=== PATIENT | female | born 1975 | race Caucasian/White ===

== ENCOUNTER 2016-09-17 16:31 | Emergency (ER) | payer MEDICARE, MEDICAID ==
[2016-09-17 17:59] LABS: Hematocrit 33 % (35-47); Mean Corpuscular HGB Conc 33 g/dl (31-36); Mean Corpuscular Hemoglobin 30 pg (27-31); Mean Corpuscular Volume 89 fL (80-97); Mean Platelet Volume 9 um3 (7.4-10.4); Red Blood Count 3.72 10^6/ul (4.0-5.4); Red Cell Distribution Width 15 % (10.5-15); White Blood Count 5.2 10^3/ul (3.5-10.8)
[2016-09-17 18:16] LABS: ALT 21 U/L (7-52); AST 21 U/L (13-39); Alkaline Phosphatase 46 U/L (34-104); Anion Gap 7 mmol/L (2-11); BUN/Creatinine Ratio 15.3 (8-20); Blood Urea Nitrogen 9 mg/dL (6-24); C Reactive Protein < 1.00 mg/L (< 5.00); CO2 Carbon Dioxide 27 mmol/L (22-32); Calcium 9.6 mg/dL (8.6-10.3); Chloride 101 mmol/L (101-111); EGFR African American 145.9 (>60); EGFR Non-African American 113.5 (>60); Globulin 3.3 g/dL (2-4); Glucose 79 mg/dL (70-100); Potassium 3.4 mmol/L (3.5-5.0); Sodium 135 mmol/L (133-145); Total Protein 8.3 g/dL (6.4-8.9)
--- NOTE | 2016-09-17 18:39 | RAD ---
INDICATION: Angiogram in July. Subsequent infection. Has been on antibiotics. Redness and discharge from the puncture site today. COMPARISON: None. TECHNIQUE: Brito scale, color Doppler, and spectral analysis of the deep veins of the LEFT lower extremity. Vessel compression, phasicity, and augmentation assessed. REPORT: The LEFT common femoral, great saphenous, profunda femoral, femoral, popliteal, peroneal, and posterior tibial veins are patent. Ultrasound at the level of the LEFT groin puncture site demonstrates mild infiltrative edema. No loculated abscess collection evident. No pseudoaneurysm evident. 0.3 cm short axis normal morphology LEFT inguinal lymph node noted. Patency of the contralateral common femoral vein documented. IMPRESSION: 1. No evidence for LEFT lower extremity deep venous thrombosis. 2. Ultrasound at the level of the LEFT groin puncture site demonstrates mild infiltrative edema. No loculated abscess collection evident. No pseudoaneurysm evident.
--- NOTE | 2016-09-17 18:58 | ED ---
Skin Complaint - HPI Summary HPI Summary: 41 female presents with complaints of redness and drainage from a past surgical wound on her left groin from an angiogram back in July. Patient has had this same problem but worse a few weeks ago that lasted for a few weeks and after two rounds of antibiotics it cleared. She noticed today 09/17/16 the redness and minimal drainage for the site again. Denies bleeding, red streaks, and fever/ chills. Call surgeon who told her to come to ER. She previously was on Clindamycin which did help clear the infection. Also complains of another area of redness on her lower left lara, without drainage and mildly tender to touch. Both patient and mother state the site looks much better than previous infections/complications. - History of Current Complaint Chief Complaint: EDGeneral Time Seen by Provider: 09/17/16 18:31 Stated Complaint: GROIN REDNESS Hx Obtained From: Patient, Family/Sleeve Baster - mother Onset/Duration: Started Hours Ago Skin Exposure Onset/Duration: Hours Ago Timing: Constant Onset Severity: Mild Current Severity: Mild Pain Intensity: 5 Pain Scale Used: 0-10 Numeric Skin Location: Leg - left groin Character: Redness Aggravating Symptom(s): Nothing Alleviating Symptom(s): Nothing Associated Signs & Symptoms: Drainage Similar Episode/Dx as: 1 month ago - Allergy/Home Medications Allergies/Adverse Reactions: Allergies Allergy/AdvReac Type Severity Reaction Status Date / Time Infliximab [From Remicade] Allergy Severe Edema Verified 08/30/16 12:42 Latex Allergy Rash Verified 08/30/16 12:42 Sulfa Antibiotics AdvReac Hair Loss Verified 08/30/16 12:42 PMH/Surg Hx/FS Hx/Imm Hx Endocrine/Hematology History: Denies: Hx Diabetes Cardiovascular History: Reports: Hx Valvular Heart Disease - MVP Denies: Hx Hypertension, Hx Pacemaker/ICD GI History: Reports: Other GI Disorders - ulcerative colitis History: Denies: Hx Renal Disease Musculoskeletal History: Denies: Hx Osteoporosis Sensory History: Denies: Hx Hearing Aid Psychiatric History: Denies: Hx Panic Disorder - Surgical History Surgery Procedure, Year, and Place: angiogram July 2016 - Immunization History Date of Influenza Vaccine: Immunizations Up to Date: Yes Infectious Disease History: No Infectious Disease History: Denies: Traveled Outside the [place] in Last 30 Days - Family History Known Family History: Positive: Cardiac Disease - Social History Alcohol Use: None Substance Use Type: Reports: None Smoking Status (MU): Never Smoked Tobacco Have You Smoked in the Last Year: No Review of Systems Constitutional: Negative Eyes: Negative ENT: Negative Cardiovascular: Negative Respiratory: Negative Gastrointestinal: Negative Musculoskeletal: Negative Positive: Rash - groin redness, lara redness Neurological: Negative Psychological: Normal All Other Systems Reviewed And Are Negative: Yes Physical Exam Triage Information Reviewed: Yes Vital Signs On Initial Exam: Initial Vitals Temp Pulse Resp BP Pulse Ox 98.2 F 82 20 115/65 99 09/17/16 16:40 09/17/16 16:40 09/17/16 16:40 09/17/16 16:40 09/17/16 16:40 Vital Signs Reviewed: Yes Appearance: Positive: Well-Appearing, No Pain Distress, Well-Nourished Skin: Positive: Warm, Skin Color Reflects Adequate Perfusion, Dry, Erythema @ - left groin at site of angiogram. small circular .5cm width erythema surround puncture site. appears to have healed nicely. no current drainage is noted from the site. not raised, not firm. flush with the skin. no red streaks. Left lara- small circular 1 cm wide area of erythema, raised and somewhat tender to touch, no discharge. firm. patient denies being bite by insect. no red streaks or increasing cellultitis. no lacerations or openings in the skin. Head/Face: Positive: Normal Head/Face Inspection Eyes: Positive: Normal, Conjunctiva Clear ENT: Positive: Normal ENT inspection, Hearing grossly normal, Pharynx normal, TMs normal Neck: Positive: Supple, Nontender, No Lymphadenopathy Respiratory/Lung Sounds: Positive: Clear to Auscultation, Breath Sounds Present Cardiovascular: Positive: Normal, RRR, Pulses are Symmetrical in both Upper and Lower Extremities, Murmur - faintly heard. Negative: Leg Edema Left, Leg Edema Right Musculoskeletal: Positive: Normal, Strength/ROM Intact. Negative: Micky Sign Left, Micky Sign Right, Edema Left, Edema Right Neurological: Positive: Normal, Sensory/Motor Intact, Alert, Oriented to Person Place, Time, CN Intact II-III, Reflexes Intact, NV Bundle Intact Distally, Normal Gait Psychiatric: Positive: Normal, Affect/Mood Appropriate Diagnostics - Vital Signs Vital Signs Temp Pulse Resp BP Pulse Ox 09/17/16 18:47 98.2 F 65 16 118/65 98 09/17/16 16:40 98.2 F 82 20 115/65 99 - Laboratory Lab Results: Lab Results 09/17/16 09/17/16 09/17/16 Range/Units 17:40 17:40 17:40 WBC 5.2 (3.5-10.8) 10^3/ul RBC 3.72 L (4.0-5.4) 10^6/ul Hgb 11.0 L (12.0-16.0) g/dl Hct 33 L (35-47) % MCV 89 (80-97) fL MCH 30 (27-31) pg MCHC 33 (31-36) g/dl RDW 15 (10.5-15) % Plt Count 317 (150-450) 10^3/ul MPV 9 (7.4-10.4) um3 Neut % (Auto) 51.2 (38-83) % Lymph % (Auto) 40.6 (25-47) % Crook % (Auto) 5.8 (1-9) % Eos % (Auto) 1.9 (0-6) % Baso % (Auto) 0.5 (0-2) % Absolute Neuts (auto) 2.7 (1.5-7.7) 10^3/ul Absolute Lymphs (auto) 2.1 (1.0-4.8) 10^3/ul Absolute Monos (auto) 0.3 (0-0.8) 10^3/ul Absolute Eos (auto) 0.1 (0-0.6) 10^3/ul Absolute Basos (auto) 0 (0-0.2) 10^3/ul Absolute Nucleated RBC 0 10^3/ul Nucleated RBC % 0 INR (Anticoag Therapy) (0.89-1.11) Sodium 135 (133-145) mmol/L Potassium 3.4 L (3.5-5.0) mmol/L Chloride 101 (101-111) mmol/L Carbon Dioxide 27 (22-32) mmol/L Anion Gap 7 (2-11) mmol/L BUN 9 (6-24) mg/dL Creatinine 0.59 (0.51-0.95) mg/dL Est GFR ( Amer) 145.9 (>60) Est GFR (Non-Af Amer) 113.5 (>60) BUN/Creatinine Ratio 15.3 (8-20) Glucose 79 (70-100) mg/dL Lactic Acid 0.6 (0.5-2.0) mmol/L Calcium 9.6 (8.6-10.3) mg/dL Total Bilirubin 0.30 (0.2-1.0) mg/dL AST 21 (13-39) U/L ALT 21 (7-52) U/L Alkaline Phosphatase 46 (34-104) U/L C-Reactive Protein < 1.00 (< 5.00) mg/L Total Protein 8.3 (6.4-8.9) g/dL Albumin 5.0 (3.2-5.2) g/dL Globulin 3.3 (2-4) g/dL Albumin/Globulin Ratio 1.5 (1-3) // Range/Units 17:40 WBC (3.5-10.8) 10^3/ul RBC (4.0-5.4) 10^6/ul Hgb (12.0-16.0) g/dl Hct (35-47) % MCV (80-97) fL MCH (27-31) pg MCHC (31-36) g/dl RDW (10.5-15) % Plt Count (150-450) 10^3/ul MPV (7.4-10.4) um3 Neut % (Auto) (38-83) % Lymph % (Auto) (25-47) % Crook % (Auto) (1-9) % Eos % (Auto) (0-6) % Baso % (Auto) (0-2) % Absolute Neuts (auto) (1.5-7.7) 10^3/ul Absolute Lymphs (auto) (1.0-4.8) 10^3/ul Absolute Monos (auto) (0-0.8) 10^3/ul Absolute Eos (auto) (0-0.6) 10^3/ul Absolute Basos (auto) (0-0.2) 10^3/ul Absolute Nucleated RBC 10^3/ul Nucleated RBC % INR (Anticoag Therapy) 0.94 (0.89-1.11) Sodium (133-145) mmol/L Potassium (3.5-5.0) mmol/L Chloride (101-111) mmol/L Carbon Dioxide (22-32) mmol/L Anion Gap (2-11) mmol/L BUN (6-24) mg/dL Creatinine (0.51-0.95) mg/dL Est GFR ( Amer) (>60) Est GFR (Non-Af Amer) (>60) BUN/Creatinine Ratio (8-20) Glucose (70-100) mg/dL Lactic Acid (0.5-2.0) mmol/L Calcium (8.6-10.3) mg/dL Total Bilirubin (0.2-1.0) mg/dL AST (13-39) U/L ALT (7-52) U/L Alkaline Phosphatase (34-104) U/L C-Reactive Protein (< 5.00) mg/L Total Protein (6.4-8.9) g/dL Albumin (3.2-5.2) g/dL Globulin (2-4) g/dL Albumin/Globulin Ratio (1-3) Result Diagrams: 09/17/16 17:40 09/17/16 17:40 Lab Statement: Any lab studies that have been ordered have been reviewed, and results considered in the medical decision making process. - Ultrasound No standard instances Ultrasound Interpretation: No Acute Changes - no evidence for left lower extremity DVT. u/s at the level of the left groin puncture site demonstrated mild infiltrative edema. no loculated abscess collection evident. no pseudoaneurysm evident. Ultrasound Interpretation Completed By: Radiologist - 1. No evidence for LEFT lower extremity deep venous thrombosis. 2. Ultrasound at the level of the LEFT groin puncture site demonstrates mild infiltrative edema. No loculated abscess collection evident. No pseudoaneurysm evident. Course/Dx - Course Course Of Treatment: patient will be treated with clindamycin and told to follow up with surgeon. does not need IV antbiotics at this time like she was told. cellulitis appears very minimal. also told to try triple antibiotic ointment. keep an eye on increasing redness or wrosening symptoms. - Differential Diagnoses - Skin Complaint Differential Diagnoses: Abscess, Cellulitis, Foreign Body, Other - Diagnoses Provider Diagnoses: Cellulitis of groin, left, Postoperative cellulitis of surgical wound Discharge - Discharge Plan Condition: Stable Disposition: HOME Prescriptions: Clindamycin CAP* [Cleocin 150 MG CAP*] 150 mg PO TID #21 cap Patient Education Materials: Cellulitis (ED) Referrals: Cinthya Williamson MD [Primary Care Provider] - Additional Instructions: When you find the name of the medication you were given for the last infection please call [phone] and ask for the charge nurse. I will then fill the prescription for you to [facility] at your pharmacy tomorrow. Take medication as prescribed. Follow-up with your PCP or surgeon who did you angiogram withint the next 5-7 days. If symptoms worsen or do not improve please seek medical attention promptly.
[2016-09-17 20:29] VITALS: BP 110/59
== END 2016-09-17 20:15 | disposition home or self-care (01) ==
LOC: ED 16:31
DX: L03.314 Cellulitis of groin (principal); Z98.890 Other specified postprocedural states
CPT/HCPCS: 36415; 80053; 83605; 85025; 85610; 86140; 99282